=== PATIENT | female | born 1970 | race Caucasian/White ===

== ENCOUNTER 2018-04-05 17:16 | Outpatient (REF) | payer OTHER, SELFPAY ==
[2018-04-05 21:00] LABS: HCT 44.1 % (36.0-46.0); HGB 14.4 g/dL (12.0-15.5); Mean Corp. HGB Concentration 32.7 g/dL (32.0-36.0); Mean Corpuscular Hemoglobin 30.7 pg (27.0-33.0); Mean Platelet Volume 9.7 fL (8.0-11.0); Platelet Count 300 x1000/uL (130-400); RBC 4.69 m/cumm (4.00-5.20); RBC Distribution Width 13.2 % (11.7-14.6); White Blood Cell Count 8.44 k/cumm (4.4-10.8)
[2018-04-05 21:35] LABS: Cholesterol 190 mg/dL (50-200); HDL Cholesterol 36 mg/dL (40-60); LDL CHOLESTEROL 104 mg/dL (<100); TSH 3.05 uIU/mL (0.358-3.74); Triglyceride 236 mg/dL (30-150)
[2018-04-05 21:42] LABS: Hemoglobin A1C 5.8 % (4.5-6.2)
== END 2018-04-05 17:36 ==
LOC: NCHCN 17:16
PROVIDERS: PCP Nurse Practitioner Family; Visit Provider Nurse Practitioner Family
DX: Z00.00 Encounter for general adult medical examination without abnormal findings (principal); Z13.1 Encounter for screening for diabetes mellitus; Z13.220 Encounter for screening for lipoid disorders; Z13.29 Encounter for screening for other suspected endocrine disorder; E66.9 Obesity, unspecified
CPT/HCPCS: 80061; 83721; 85027; 83036; 84443

== ENCOUNTER 2019-04-25 12:56 | Outpatient (REF) | payer OTHER, SELFPAY ==
[2019-04-25 20:48] LABS: C-Reactive Protein 0.35 mg/dL (0.0-0.3)
[2019-04-25 21:27] LABS: ESR 16 mm/hr (0-20)
[2019-04-28 11:13] LABS: Cyclic Citrullinated Peptide <2.5 U/mL (<5.0)
[2019-04-28 15:04] LABS: ANA Interpretation Negative (Negative)
== END 2019-04-25 13:16 ==
LOC: NCHCN 12:56
PROVIDERS: PCP Nurse Practitioner Family; Visit Provider Nurse Practitioner Family
DX: Z00.00 Encounter for general adult medical examination without abnormal findings (principal); M25.40 Effusion, unspecified joint; M79.646 Pain in unspecified finger(s); R73.09 Other abnormal glucose; F17.210 Nicotine dependence, cigarettes, uncomplicated; E66.9 Obesity, unspecified; F51.04 Psychophysiologic insomnia; D48.5 Neoplasm of uncertain behavior of skin
CPT/HCPCS: 85652; 86200; 86038; 86140; 86431

== ENCOUNTER 2019-05-30 12:39 | Outpatient (REF) | payer OTHER, SELFPAY ==
--- NOTE | 2019-05-30 08:50 | SKI_PTH ---
PATIENT: Marge Sparks LOC: [facility]#:[id number] AGE/SX: 49/F ROOM: RE05/30/[address]: Odette Szymanski : 1970 BED: DIS: 05/30/2019 SPEC #: [id number] RECD: 06/02/19 12:30 STATUS: BRISA GALVAN #: [id number] JUMANA: 05/30/19 08:[address]: Odette Holden DEPT: Surgical Specimen RECD BY: Allison Terrell Tissues: 1 - SKIN BIOPSY(SHAVE/PUNCH) 2 - SKIN BIOPSY(SHAVE/PUNCH) Procedures: SKIN LEVEL 4 Comments: [id number]
== END 2019-05-30 12:59 ==
LOC: NCHCN 12:39
PROVIDERS: PCP Nurse Practitioner Family; Visit Provider Nurse Practitioner Family
DX: L43.8 Other lichen planus (principal); L82.1 Other seborrheic keratosis
CPT/HCPCS: 88305

== ENCOUNTER 2020-10-13 08:33 | Outpatient (REF) | payer OTHER, SELFPAY ==
[2020-10-15 00:56] LABS: COVID-19 RT-PCR UVMMC Result Negative (Negative)
== END 2020-10-14 10:03 | disposition home or self-care (01) ==
LOC: NCHCN 08:33
PROVIDERS: PCP Nurse Practitioner Family; Visit Provider Nurse Practitioner Family
DX: Z20.822 Contact with and (suspected) exposure to COVID-19 (principal); J06.9 Acute upper respiratory infection, unspecified
CPT/HCPCS: U0003

== ENCOUNTER 2021-01-27 16:08 | Outpatient (REF) | payer OTHER, SELFPAY ==
[2021-01-27 15:40] LABS: HCT 39.8 % (36.0-46.0); HGB 12.7 g/dL (11.2-15.7); MCH 30.2 pg (27.0-33.0); MCHC 31.9 % (32.0-36.0); MCV 94.8 fL (80-95); MPV 9.6 fL (8.0-11.0); Platelet Count 319 10^3/uL (130-400)
[2021-01-27 15:56] LABS: Hemoglobin A1C 5.9 % (<5.7)
[2021-01-27 16:55] LABS: ALT 41 U/L (14-59); AST 22 U/L (15-37); Alkaline Phosphatase 82 U/L (46-116); Anion Gap 12.1 mmol/L (3-11); BUN 10 mg/dL (7-18); Bilirubin, Total 0.3 mg/dL (0.2-1.0); CO2 22.9 mmol/L (21.0-32.0); CREATININE 0.8 mg/dL (0.55-1.02); Calcium 9.1 mg/dL (8.5-10.1); Calculated LDL 69 mg/dL (<100); Chloride 105 mmol/L (98-107); Cholesterol 139 mg/dL (<200); Glucose 93 mg/dL (74-106); HDL Cholesterol 32 mg/dL (40-60); Potassium 4.1 mmol/L (3.5-5.1); Sodium 140 mmol/L (136-145); TSH 2.89 uIU/mL (0.36-3.74); Total Protein 6.8 g/dL (6.4-8.2); Triglyceride 191 mg/dL (<150)
[2021-01-27 20:08] LABS: Lipase 150 U/L (73-393)
[2021-02-01 10:19] LABS: IgA 86 mg/dL (85-499); Interpretation (See Note); Tissue Transglutaminase IgA <1.2 U/mL (<4.0)
== END 2021-01-27 16:09 | disposition home or self-care (01) ==
LOC: NCHCN 16:08
PROVIDERS: PCP Nurse Practitioner Family; Visit Provider Nurse Practitioner Family
DX: E78.5 Hyperlipidemia, unspecified (principal); R73.03 Prediabetes; R19.7 Diarrhea, unspecified
CPT/HCPCS: 80053; 80061; 82784; 83516; 83690; 85027; 83036; 84443

== ENCOUNTER 2022-09-28 10:51 | Outpatient (REF) | payer OTHER, SELFPAY ==
[2022-09-28 14:44] LABS: HCT 39.1 % (36.0-46.0); HGB 12.8 g/dL (11.2-15.7); MCH 30.2 pg (27.0-33.0); MCHC 32.7 % (32.0-36.0); MCV 92 fL (80-95); MPV 9.8 fL (8.0-11.0); Platelet Count 306 10^3/uL (130-400); RBC 4.24 10^6/uL (3.93-5.22); RDW 12.8 % (11.7-14.6); WBC 8.61 10^3/uL (4.4-10.8)
[2022-09-28 15:14] LABS: ALT 54 U/L (14-59); AST 34 U/L (15-37); Alkaline Phosphatase 89 U/L (46-116); Anion Gap 10.7 mmol/L (3-11); BUN 12 mg/dL (7-18); Bilirubin, Total 0.3 mg/dL (0.2-1.0); CO2 25.3 mmol/L (21.0-32.0); CREATININE 0.8 mg/dL (0.55-1.02); Calcium 9.2 mg/dL (8.5-10.1); Chloride 107 mmol/L (98-107); Estimated GFR 89.15 (mL/min/1.73m2); Glucose 91 mg/dL (74-106); Potassium 4.4 mmol/L (3.5-5.1); Sodium 143 mmol/L (136-145); TSH 4.12 uIU/mL (0.36-3.74); Total Protein 7.5 g/dL (6.4-8.2)
[2022-09-28 15:40] LABS: Hemoglobin A1C 5.6 % (<5.7)
[2022-09-28 16:10] LABS: Calculated LDL 42 mg/dL (<100); Cholesterol 153 mg/dL (<200); HDL Cholesterol 34 mg/dL (40-60); Triglyceride 385 mg/dL (<150)
== END 2022-09-28 10:52 | disposition home or self-care (01) ==
LOC: NCHCN 10:51
PROVIDERS: PCP Nurse Practitioner Family; Visit Provider Nurse Practitioner Family
DX: Z00.00 Encounter for general adult medical examination without abnormal findings (principal); N63.0 Unspecified lump in unspecified breast; I83.90 Asymptomatic varicose veins of unspecified lower extremity; R73.03 Prediabetes; I10 Essential (primary) hypertension
CPT/HCPCS: 80053; 80061; 85027; 83036; 84443

== ENCOUNTER 2022-11-27 12:13 | Outpatient (REF) | payer OTHER, SELFPAY ==
[2022-11-27 14:36] LABS: Anion Gap 10.8 mmol/L (3-11); BUN 12 mg/dL (7-18); CO2 24.2 mmol/L (21.0-32.0); CREATININE 0.9 mg/dL (0.55-1.02); Chloride 103 mmol/L (98-107); Cholesterol 148 mg/dL (<200); Glucose 111 mg/dL (74-106); HDL Cholesterol 30 mg/dL (40-60); Potassium 3.9 mmol/L (3.5-5.1); Sodium 138 mmol/L (136-145); TSH (W/Ref FT4) 3.18 uIU/mL (0.36-3.74); Triglyceride 430 mg/dL (<150)
[2022-11-27 14:54] LABS: LDL CHOLESTEROL 53 mg/dL (<100)
[2022-11-27 23:18] LABS: Thyroglobulin Antibody <15 U/mL (<=60)
[2022-11-28 10:11] LABS: Thyroperoxidase Antibody <28 U/mL (<=60)
== END 2022-11-27 12:14 | disposition home or self-care (01) ==
LOC: NCHCN 12:13
PROVIDERS: PCP Nurse Practitioner Family; Visit Provider Nurse Practitioner Family
DX: R94.6 Abnormal results of thyroid function studies (principal); E78.6 Lipoprotein deficiency; I10 Essential (primary) hypertension
CPT/HCPCS: 80048; 80061; 83721; 84443; 86376; 86800

== ENCOUNTER 2023-08-29 17:09 | Outpatient (REF) | payer OTHER, SELFPAY ==
--- NOTE | 2023-08-29 09:00 | SKI_PTH ---
PATIENT: Marge Sparks LOC: [facility]#:[id number] AGE/SX: 53/F ROOM: RE08/29/[address]: ONIEL: 1970 BED: DIS: 08/29/2023 SPEC #: [id number] RECD: 08/29/23 17:28 STATUS: BRISA GALVAN #: [id number] JUMANA: 08/29/23 09:[address]: Araseli Nickerson DEPT: Surgical Specimen RECD BY: Allison Terrell ENTERED: 08/29/23 17:29 SP TYPE: BENITEZ FLYNN DR: Odette Szymanski Tissues: 1 - SKIN BIOPSY(SHAVE/PUNCH) 2 - SKIN BIOPSY(SHAVE/PUNCH) 3 - SKIN BIOPSY(SHAVE/PUNCH) Procedures: SKIN LEVEL 4 Comments: [id number]
== END 2023-08-29 17:10 | disposition home or self-care (01) ==
LOC: NCHCN 17:09
PROVIDERS: PCP Nurse Practitioner Family; Visit Provider Family Medicine
DX: L21.9 Seborrheic dermatitis, unspecified (principal)
CPT/HCPCS: 88305

== ENCOUNTER 2024-12-04 17:56 | Outpatient (REF) | payer OTHER, SELFPAY ==
[2024-12-04 20:41] LABS: HCT 38.8 % (36.0-46.0); HGB 12.4 g/dL (11.2-15.7); MCH 29.0 pg (27.0-33.0); MCHC 32.0 % (32.0-36.0); MCV 91 fL (80-95); MPV 9.4 fL (8.0-11.0); Platelet Count 319 10^3/uL (130-400); RBC 4.27 10^6/uL (3.93-5.22); RDW 13.0 % (11.7-14.6); RDW-SD 43.2 fL; WBC 8.88 10^3/uL (4.4-10.8)
[2024-12-04 21:03] LABS: ALT 79 U/L (14-59); AST 44 U/L (15-37); Albumin 4.2 g/dL (3.4-5.0); Alkaline Phosphatase 93 U/L (46-116); Anion Gap 9.1 mmol/L (3-11); BUN 13 mg/dL (7-18); Bilirubin, Total 0.3 mg/dL (0.2-1.0); CO2 27.9 mmol/L (21.0-32.0); Calcium 9.9 mg/dL (8.5-10.1); Chloride 102 mmol/L (98-107); Cholesterol 160 mg/dL (<200); Estimated GFR 107.26 (mL/min/1.73m2); Glucose 81 mg/dL (74-106); HDL Cholesterol 29 mg/dL (>or=50); Potassium 3.9 mmol/L (3.5-5.1); Sodium 139 mmol/L (136-145); TSH 4.68 uIU/mL (0.36-3.74); Total Protein 7.6 g/dL (6.4-8.2); Triglyceride 418 mg/dL (<150)
[2024-12-04 21:36] LABS: LDL CHOLESTEROL 66 mg/dL (<100)
== END 2024-12-04 17:57 | disposition home or self-care (01) ==
LOC: NCHCN 17:56
PROVIDERS: PCP Nurse Practitioner Family; Visit Provider Family Medicine
DX: R63.5 Abnormal weight gain (principal); R53.83 Other fatigue; I10 Essential (primary) hypertension
CPT/HCPCS: 80053; 80061; 83721; 85027; 84443

== ENCOUNTER 2025-01-15 19:36 | Outpatient (REF) | payer OTHER, SELFPAY ==
--- NOTE | 2025-01-15 15:00 | SKI_PTH ---
PATIENT: Marge Sparks LOC: [facility] U#:[id number] AGE/SX: 54/F ROOM: RE01/15/[address]: ONIEL: 1970 BED: DIS: 01/15/2025 SPEC #: [id number] RECD: 01/16/25 12:29 STATUS: BRISA GALVAN #: [id number] JUMANA: 01/15/25 15:[address]: Araseli Nickerson DEPT: Surgical Specimen RECD BY: Allison Terrell ENTERED: 01/16/25 12:30 SP TYPE: BENITEZ FLYNN DR: Odette Szymanski Tissues: 1 - SKIN BIOPSY(SHAVE/PUNCH) Procedures: SKIN LEVEL 4 Comments: [id number]
== END 2025-01-15 19:37 | disposition home or self-care (01) ==
LOC: NCHCN 19:36
PROVIDERS: PCP Nurse Practitioner Family; Visit Provider Family Medicine
DX: L82.1 Other seborrheic keratosis (principal)
CPT/HCPCS: 88305